=== PATIENT | female | born 1970 | race Caucasian/White ===

== ENCOUNTER 2017-04-11 08:42 | Emergency (ER) | payer BC ==
[~2017-04-11] VITALS: Ht 177.8 cm; Wt 86.8 kg
[2017-04-11] MEDS ORDERED: KETOROLAC 30 MG/1 ML IVPush ONE (10:00)
[2017-04-11] MEDS ORDERED: SODIUM CHLORIDE FLUSH 10ML SYR IVF ONE (10:00)
[2017-04-11] MEDS ORDERED: KETOROLAC 30 MG/1 ML ONE (10:12)
[2017-04-11 10:22] LABS: ASPARTATE AMINO TRANSFERASE 17 U/L (15-37); BLOOD UREA NITROGEN 8 mg/dL (7-18)
[2017-04-11 10:27] LABS: IS PT STATUS REG ER OR PRE ER? YES
[2017-04-11 11:07] VITALS: BP 111/73
== END 2017-04-11 12:18 | disposition home or self-care (01) ==
LOC: ED 09:17
DX: R07.2 Precordial pain (principal); M54.6 Pain in thoracic spine; E07.9 Disorder of thyroid, unspecified
CPT/HCPCS: 36415; 71010; 80053; 83880; 84484; 85025; 85379; 93005; 96374; J1885

== ENCOUNTER 2017-08-17 12:38 | Emergency (ER) | payer BC ==
[~2017-08-17] VITALS: Ht 177.8 cm; Wt 85.5 kg
[2017-08-17 12:40] VITALS: BP 116/74
[2017-08-17] MEDS ORDERED: PROP40TA PO (12:59)
[2017-08-17 13:40] LABS: HEMATOCRIT 43.9 % (34.6-47.8); HEMOGLOBIN 14.9 g/dL (11.7-16.4); WHITE BLOOD COUNT 7.6 x10^3/uL (3.4-10)
[2017-08-17 13:52] LABS: ASPARTATE AMINO TRANSFERASE 9 U/L (15-37); BLOOD UREA NITROGEN 11 mg/dL (7-18)
== END 2017-08-17 16:01 | disposition home or self-care (01) ==
LOC: ED 13:49
DX: N83.202 Unspecified ovarian cyst, left side (principal)
CPT/HCPCS: 36415; 76830; 80053; 81003; 85025; 99285

== ENCOUNTER 2018-11-20 09:52 | Emergency (ER) | payer BC ==
[~2018-11-20] VITALS: Ht 177.8 cm; Wt 88.9 kg
[~2018-11-20 09:52] MED LIST: PROP40TA PO
[2018-11-20 11:02] VITALS: BP 108/50
--- NOTE | 2018-11-20 11:02 | NUR ---
Patient/Caregiver given discharge instructions and they have confirmed that they understand the instructions. Patient ambulatory with steady gait.
== END 2018-11-20 11:05 | disposition home or self-care (01) ==
LOC: ED 11:02
DX: S06.0X0A Concussion without loss of consciousness, initial encounter (principal); Z86.39 Personal history of other endocrine, nutritional and metabolic disease; W18.30XA Fall on same level, unspecified, initial encounter; Y93.89 Activity, other specified; Y92.89 Other specified places as the place of occurrence of the external cause; Y99.8 Other external cause status
CPT/HCPCS: 70450; 93005; 99284